=== PATIENT | male | born 1985 | race Caucasian/White ===

== ENCOUNTER 2019-09-28 15:39 | Emergency (ER) | payer BC, SELFPAY ==
[2019-09-28 15:41] VITALS: BP 143/87; PULSE 103; RESP 18; TEMP 37.3; O2SAT 96; BMI 24.7
--- NOTE | 2019-09-28 15:54 | CTR_ITS ---
PROCEDURE INFORMATION: Exam: CT Neck With Contrast Exam date and time: 09/28/2019 4:33 PM Age: 34 years old Clinical indication: Mass, lump, or swelling in neck; Throat pain; Additional info: R peritonsilar abscess TECHNIQUE: Imaging protocol: Computed tomography images of the neck with intravenous contrast. Radiation optimization: All CT scans at this facility use at least one of these dose optimization techniques: automated exposure control; mA and/or kV adjustment per patient size (includes targeted exams where dose is matched to clinical indication); or iterative reconstruction. Contrast material: OMNI 300; Contrast volume: 95 ml; Contrast route: INTRAVENOUS (IV); COMPARISON: No relevant prior studies available. RADIATION DOSE METRICS: Total DLP (mGy-cm): 650.24 FINDINGS: Sinuses: Mucosal thickening of the right hypopharynx with partial effacement of the right vallecula and effacement of the right piriformis sinus. Mild-moderate narrowing of the hypo pharyngeal airway. Nasopharynx: Unremarkable. Oropharynx: Diffuse inhomogenous enlargement of the right palatine tonsil. No discrete intra tonsillar or peritonsillar fluid collection identified. Thickening of the soft palate and uvula. Calcifications in the bilateral tonsils. Hypopharynx: Unremarkable. Larynx: Unremarkable. Normal epiglottis. Retropharyngeal space: Unremarkable. Submandibular/Parotid glands: Mild fat stranding in the right submandibular space, adjacent to the submandibular gland. Thyroid: Normal. No enlarged or calcified nodules. Lymph nodes: Subcentimeter cervical and submandibular lymph nodes are most likely reactive. Trachea: Visualized trachea is unremarkable. Lungs: Unremarkable as visualized. Bones/joints: Unremarkable. No acute fracture. Soft tissues: Unremarkable. No significant soft tissue swelling. CT/CT neck w con* [id number] IMPRESSION: 1. Right tonsillitis with enlarged inhomogenous tonsil but no discrete abscess identified. 2. Mucosal thickening and swelling of the right hypopharynx and uvula. This creates mild to moderate hypopharyngeal airway narrowing. 3. Mild right submandibular edema/cellulitis. 4. Reactive cervical and submandibular lymph nodes. Radiation Dose CTDIVOL = (mGy): DLP = 650.24 (mGy-cm)
--- NOTE | 2019-09-28 16:11 | ED_ITS ---
HPI - URI/Sore Throat General: Chief Complaint: Upper Respiratory Infection Stated Complaint: absess tonsils Time Seen by Provider: 09/28/19 15:46 History of Present Illness: HPI Narrative: 34-year-old male comes in complaining of sore throat he was seen at a walk-in clinic earlier today with start of a peritonsillar abscess and brought in by EMS. His is with him he cannot speak very well because of the sore throat he said it started 3 days ago progressively worsening the last 2 days he is not been able to speak he had a T- max during that time of 100.5 he is also had a headache and some nausea but no vomiting. No cough or shortness of breath just as severe sore throat. No one else in the home has been sick he is not been exposed to anyone he knows of that is COVID positive MD elicited complaint: fever and sore throat Onset (ago): day(s) (3) Consistency: constant Severity: severe Able to tolerate fluids by mouth: Yes Exacerbating factors: swallowing and speaking Associated symptoms: Reports fever(s), headache(s), nausea and sore throat; Deny chest pain, congestion, cough, diarrhea, epistaxis, myalgias, nasal congestion, rash, rhinorrhea, short of breath, sinus pain or vomiting Treatments prior to arrival: none Review of Systems Const: Reports: fever(s) ENMT: Denies: nasal congestion, epistaxis or sinus pain Card: Denies: chest pain, edema, dyspnea on exertion or orthopnea Resp: Denies: dyspnea, productive cough or non-productive cough GI: Reports: nausea; Denies: vomiting or diarrhea : Denies: flank pain, dysuria, urinary frequency or urinary urgency Skin/Breast: Denies: rash or pruritus Neuro: Reports: headache(s) PFSH ED PFSH: Medical History (Updated 09/28/19 @ 18:00 by Sander Tapia DO) No significant medical problems Surgical History (Updated 09/28/19 @ 16:15 by Sander Tapia DO) No history of previous surgery Social History (Updated 09/28/19 @ 14:00 by Aurora Meade LPN) Smoking and tobacco status: never smoked Second hand smoke exposure: No Smoking risk assessment/counseling performed?: No Alcohol intake: never Desire information about alcohol rehabilitation?: No Counseling given: No Desire information about substance/drug rehabilitation?: No Counseling given: No Physical Exam Const: COMMON NORMALS: no acute distress HENMT: COMMON NORMALS: normocephalic and atraumatic HEAD & SCALP: normocephalic and atraumatic Eye: COMMON NORMALS: Equal, round and reactive pupils present, EOMs intact bilaterally, conjunctivae normal and no scleral icterus CONJUNCTIVA: Yes conjunctivae normal PUPIL: Yes Equal, round and reactive pupils present Neck/C-Spine: COMMON NORMALS: full ROM, no lymphadenopathy, supple and no JVD Lymph: LYMPHATIC: no lymphadenopathy noted and no lymphedema noted Resp: COMMON NORMALS: normal respiratory effort, No retractions, No use of accessory muscles and clear to auscultation bilaterally AUSCULTATION: clear to auscultation bilaterally Cardio: COMMON NORMALS: no JVD, regular rate, regular rhythm and No murmurs present (Cardio) RATE: regular rate RHYTHM: regular rhythm GI: COMMON NORMALS: Soft to palpation and No hepatosplenomegaly present AUSCULTATION: Yes normoactive bowel sounds PALPATION: Yes Soft to palpation, No Tenderness to palpation present (GI), No Guarding due to palpation present (GI) and Yes No hepatosplenomegaly present Extremity: COMMON NORMALS: normal to inspection, capillary refill normal, no clubbing, cyanosis or edema, no calf tenderness and no pedal edema Skin: COMMON NORMALS: no rashes or lesions noted GENERAL SKIN EXAM: no rashes or lesions noted Course Vital Signs: Vital signs: Vital Signs Temperature 99.1 F 09/28/19 15:41 Pulse Rate 89 09/28/19 19:31 Respiratory Rate 14 09/28/19 19:31 Blood Pressure 115/72 09/28/19 19:31 Pulse Oximetry 95 09/28/19 19:31 MDM - URI/Sore Throat MDM Narrative: Medical decision making narrative: Reviewed findings with patient initial exam and thought he would have a pharyngeal abscess none seen on CT will discharge home on clindamycin 300 mg 4 times daily asked him to follow- up with his prior primary care doctor within the next 2 days return to emergency room if he has any worsening problems. Lab Data: Labs: Lab Results 09/28/19 09/28/19 09/28/19 Range/Units 16:15 16:15 16:20 WBC 16.2 H (4.0-10.0) 10^3/ uL RBC 4.97 (4.1-5.3) 10^6/u L Hgb 14.7 (11.7-16.6) g/dL Hct 45.3 (42.0-52.0) % MCV 91.1 (80-94) fL MCH 29.6 (28.0-34.0) pg MCHC 32.5 (30.0-36.0) g/dL RDW 11.7 L (12.1-15.1) % Plt Count 189 (130-400) 10^3/c mm MPV 11.4 H (7.4-10.4) fL Neut % (Auto) 85.9 % Lymph % (Auto) 5.5 % Bledsoe % (Auto) 7.9 % Eos % (Auto) 0.1 % Baso % (Auto) 0.2 % Neut # (Auto) 13.94 H (1.8-7.7) 10^3/u L Lymph # (Auto) 0.9 (0.8-4.8) 10^3/u L Bledsoe # (Auto) 1.3 H (0.2-0.9) 10^3/u L Eos # (Auto) 0.0 (0.0-0.8) 10^3/u L Baso # (Auto) 0.0 (0.0-0.1) 10^3/u L Nucleated RBC % (a uto) 0 % Nucleated RBCs # 0.0 /100WBC Sodium 138 (136-145) mmol/L Potassium 3.9 (3.5-5.1) mmol/L Chloride 101 (98-107) mmol/L Carbon Dioxide 28 (22-29) mmol/L Anion Gap 12.9 (5-19) BUN 8 (6-20) mg/dL Creatinine 1.0 (0.7-1.2) mg/dL GFR Calculation 85.0 L (90-130) mL/min Glucose 124 H (65-115) mg/dL Calculated Osmolal ity 283 L (285-295) mOsm/k g Calcium 9.7 (8.5-10.5) mg/dL Total Bilirubin 0.9 (0.15-1.2) mg/dL AST 14 (0-40) U/L ALT 11 (0-41) U/L Alkaline Phosphata se 47 (40-130) IU/L Total Protein 7.7 (6.6-8.7) g/dL Albumin 4.2 (3.5-5.2) g/dL Globulin 3.5 (1.3-4.6) g/dL Group A Strep Rapi d Negative (Negative) Discharge Plan Discharge Patient Disposition: Home Clinical Impression: Pharyngitis Condition: Stable Prescriptions: New clindamycin HCl 300 mg capsule 300 mg PO QID 10 Days Qty: 40 RF: 0 Discharge Orders: Discharge Order (Routine); Ordered 09/28/19 Ordered By: Sander Tapia Discharge Diet: Clear Liquid Discharge Activity: Limit activity as instructed Activity Restrictions/Additional Instructions: Aloe up with your doctor within the next 2 days return to the emergency room if it worsens Discharge Date/Time: 09/28/19 19:31 Coding Level of Care Code ED Technical Publications Manager for Jose Fwang Exam Comprehensive
[2019-09-28] MEDS: sodium chloride 0.9% 1,000 ML 999 ML IV (16:33)
[2019-09-28] MEDS: dexamethasone 10 mg/mL INJ IM (16:33)
[2019-09-28 16:36] VITALS: BP 132/72; PULSE 78; RESP 14; O2SAT 97
[2019-09-28 16:42] LABS: Alanine Aminotransferase 11 U/L (0-41); Albumin Level 4.2 g/dL (3.5-5.2); Alkaline Phosphatase 47 IU/L (40-130); Anion Gap 12.9 (5-19); Aspartate Amino Transferase 14 U/L (0-40); Basophils % 0.2 %; Blood Urea Nitrogen 8 mg/dL (6-20); Calcium 9.7 mg/dL (8.5-10.5); Carbon Dioxide 28 mmol/L (22-29); Chloride 101 mmol/L (98-107); Eosinophils % 0.1 %; Globulin 3.5 g/dL (1.3-4.6); Glucose 124 mg/dL (65-115); Hematocrit 45.3 % (42.0-52.0); Hemoglobin 14.7 g/dL (11.7-16.6); Lymphocytes # 0.9 10^3/uL (0.8-4.8); Lymphocytes % 5.5 %; Mean Corpuscular HGB Conc 32.5 g/dL (30.0-36.0); Mean Corpuscular Hemoglobin 29.6 pg (28.0-34.0); Mean Corpuscular Volume 91.1 fL (80-94); Mean Platelet Volume 11.4 fL (7.4-10.4); Monocytes # 1.3 10^3/uL (0.2-0.9); Monocytes % 7.9 %; Neutrophils # 13.94 10^3/uL (1.8-7.7); Neutrophils % 85.9 %; Nucleated Red Blood Cells % 0 %; Osmolality Calculated 283 mOsm/kg (285-295); Platelet Count 189 10^3/cmm (130-400); Potassium 3.9 mmol/L (3.5-5.1); Red Blood Count 4.97 10^6/uL (4.1-5.3); Red Cell Distribution Width 11.7 % (12.1-15.1); Sodium 138 mmol/L (136-145); Total Bilirubin 0.9 mg/dL (0.15-1.2); Total Protein 7.7 g/dL (6.6-8.7); White Blood Count 16.2 10^3/uL (4.0-10.0)
[2019-09-28 16:54] LABS: Rapid Strep A Test Negative (Negative)
[2019-09-28] MEDS: ondansetron 2 mg/ML SDV 2 mL 4 MG IVP (17:05)
[2019-09-28] MEDS: ketorolac 30 mg/mL INJ IVP (17:05)
[2019-09-28] MEDS: morphine 4 mg/mL SDV 1 mL IVP (17:05)
[2019-09-28] MEDS: iohexol 300 mg/mL 100 mL Btl IV (17:25)
[2019-09-28 17:54] VITALS: BP 107/71; PULSE 90; RESP 14; O2SAT 96
[2019-09-28] MEDS: clindamycin 900 MG/50 ML PREMIX 100 MG IV (18:26)
[2019-09-28 19:31] VITALS: BP 115/72; PULSE 89; RESP 14; O2SAT 95
== END 2019-09-28 19:31 | disposition home or self-care (01) ==
PROVIDERS: Emergency Provider Family Medicine
DX: J02.9 Acute pharyngitis, unspecified (principal)
CPT/HCPCS: 12345; 36415; 70491; 80053; 85025; 87040; 87081; 87880; 96365; 96375; 99283; J1100; J1885; J2270; J2405; J3490; J7030; Q9967